=== PATIENT | male | born 1970 | race American Indian/Alaskan Native ===

== ENCOUNTER 2022-02-13 02:54 | Emergency (ER) | payer OTHER ==
--- NOTE | 2022-02-13 04:31 | XRay Report ---
CHEST 2 VIEWS INDICATION / CLINICAL INFORMATION: chest injury. COMPARISON: None available. FINDINGS: SUPPORT DEVICES: None. HEART / MEDIASTINUM: No significant abnormality. LUNGS / PLEURA: No significant pulmonary or pleural abnormality. No pneumothorax. ADDITIONAL FINDINGS: No significant additional findings. IMPRESSION: 1. No acute findings. Signer Name: Lopez Smith DO Signed: 02/13/2022 4:26 AM Workstation Name: [id number]
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
[2022-02-13 06:13] VITALS: BP 120/72
== END 2022-02-13 06:38 | disposition home or self-care (01) ==
LOC: ED 02:54
DX: S20.219A Contusion of unspecified front wall of thorax, initial encounter (principal); F17.200 Nicotine dependence, unspecified, uncomplicated; F10.20 Alcohol dependence, uncomplicated; V89.2XXA Person injured in unspecified motor-vehicle accident, traffic, initial encounter; Y93.89 Activity, other specified; Y92.89 Other specified places as the place of occurrence of the external cause; Y99.8 Other external cause status
CPT/HCPCS: 71046; 93005; 99283